=== PATIENT | male | born 1955 | race African-American/Black ===

== ENCOUNTER 2017-07-21 09:59 | Emergency (ER) | payer MEDICAID ==
[~2017-07-21] VITALS: Ht 177.8 cm; Wt 82.0 kg
[~2017-07-21 09:59] MED LIST: ALBU05 IH; AMLO2.5T45 PO; ATEN-42 PO; ATOR20TA65 PO; LORA10TA7 PO; MECL-109 PO; NAPR-679 PO; OMEP40CA34 PO; SIMV20TA6 PO; SUCR1ORA PO; TRAM50TA3 PO
[2017-07-21] MEDS ORDERED: INDOMETHACIN 50MG CAPSULE PO ONE (11:30)
[2017-07-21] MEDS ORDERED: COLCHICINE 0.6MG TABLET PO ONE (11:30)
[2017-07-21] MEDS ORDERED: PREDNISONE 20MG TABLET PO ONE (11:30)
[2017-07-21] MEDS ORDERED: IPRATROPIUM BROMIDE (0.02%) 0.5MG/2.5ML NEB HHN STA (11:33)
[2017-07-21] MEDS ORDERED: ALBUTEROL (0.083%) 2.5MG/3ML NEB HHN STA (11:33)
[2017-07-21] MEDS ORDERED: IPRATROPIUM/ALBUTEROL 0.5-3(2.5)MG/3ML NEB ONE (12:01)
[2017-07-21 12:55] VITALS: BP 10/98
== END 2017-07-21 13:00 | disposition home or self-care (01) ==
LOC: ER 10:50
DX: M10.072 Idiopathic gout, left ankle and foot (principal); J45.901 Unspecified asthma with (acute) exacerbation; I10 Essential (primary) hypertension; J44.9 Chronic obstructive pulmonary disease, unspecified; Z86.73 Personal history of transient ischemic attack (TIA), and cerebral infarction without residual deficits; Z88.0 Allergy status to penicillin
CPT/HCPCS: 71010; 94640; 99284; J7512; J7611; J7620

== ENCOUNTER 2018-12-09 16:48 | Inpatient (IN) | payer MEDICAID ==
[~2018-12-09] VITALS: Ht 172.7 cm; Wt 61.0 kg
[~2018-12-09 16:48] MED LIST changes: -ALBU05 IH; -ATOR20TA65 PO; -SIMV20TA6 PO
[2018-12-09 20:39] LABS: BASOPHILS % 2.3 % (0.0-2.0); EOSINOPHILS % 5.5 % (0.0-5.0); HEMATOCRIT. 41.4 % (42.0-52.0); HEMOGLOBIN. 13.7 g/dL (14.0-18.0); LYMPHOCYTES % 46.2 % (20.0-50.0); MEAN CORPUSCULAR HEMOGLOBIN 31.3 pg (28.0-32.0); MEAN CORPUSCULAR VOLUME 94.7 fL (80.0-94.0); MEAN PLATELET VOLUME 7.4 fl (7.4-10.4); MONOCYTES % 6.4 % (2.0-8.0); NEUTROPHILS % 39.6 % (40.0-76.0); PLATELET 267 x1000/uL (130-400); RED BLOOD CELL COUNT 4.37 mill/uL (4.7-6.1); RED CELL DISTRIBUTION WIDTH 13.2 % (11.6-14.6)
[2018-12-09 20:45] LABS: CHLORIDE 109 mEq/L (98-107); PROTHROMBIN TIME 10.4 sec (9.1-11.1)
[2018-12-09 20:49] LABS: ETHANOL BLOOD 131 mg/dL
[2018-12-09 20:52] LABS: *AMPHETAMINES SCREEN URINE NEGATIVE (NEGATIVE); *BARBITURATES SCREEN URINE NEGATIVE (NEGATIVE); *BENZODIAZEPINES SCREEN URINE NEGATIVE (NEGATIVE); *COCAINE SCREEN URINE NEGATIVE (NEGATIVE); CANNABINOID URINE SCREEN NEGATIVE (NEGATIVE); METHADONE URINE SCREEN NEGATIVE (NEGATIVE); OPIATES URINE SCREEN NEGATIVE (NEGATIVE); PHENCYCLIDINE URINE SCREEN NEGATIVE (NEGATIVE)
[2018-12-09] MEDS ORDERED: ALBUTEROL (0.083%) 2.5MG/3ML NEB HHN STA (22:19)
[2018-12-09] MEDS ORDERED: METHYLPREDNISOLONE SOD SUCC 125 MG/2 ML VIAL IV STA (22:19)
[2018-12-09] MEDS ORDERED: ASPIRIN 325MG TABLET PO ONE (22:30)
[2018-12-10] MEDS: ASPIRIN 325MG TABLET PO NR ×2 (03:46→05:16)
[2018-12-10] MEDS: METHYLPREDNISOLONE SOD SUCC 125 MG/2 ML VIAL IV NR ×2 (03:46→05:16)
[2018-12-10 09:16] VITALS: BP 147/90
[2018-12-10 10:00] VITALS: BP 147/90
[2018-12-10] MEDS ORDERED: MONT10TA21 PO (10:19)
[2018-12-10] MEDS ORDERED: MAGNESIUM/ALUMINUM HYDROXIDE/SIMETHICONE 30ML UDC PO PRN (10:45)
[2018-12-10] MEDS ORDERED: GUAIFENESIN 200MG/10ML SUGAR FREE UDC PO PRN (10:45)
[2018-12-10] MEDS ORDERED: CLONIDINE 0.1MG TABLET PO PRN (10:45)
[2018-12-10] MEDS ORDERED: ONDANSETRON HCL 4MG/2ML INJ IV PRN (10:45)
[2018-12-10] MEDS ORDERED: DOCUSATE SODIUM 100MG CAPSULE PO PRN (10:45)
[2018-12-10] MEDS ORDERED: ACETAMINOPHEN 325MG TABLET PO PRN (10:45)
[2018-12-10 12:00] VITALS: BP 116/72
[2018-12-10 12:04] LABS: PHOSPHORUS 2.8 mg/dL (2.5-4.9)
[2018-12-10 12:29] LABS: VITAMIN B12 SERUM 187 pg/mL (211-911)
[2018-12-10 12:35] LABS: FOLIC ACID (FOLATE) SERUM > 20.00 ng/mL (>5.38)
[2018-12-10] MEDS: HYDROCODONE/ACETAMINOPHEN 5/325MG TABLET PO PRN (13:00)
[2018-12-10] MEDS: ENOXAPARIN 40MG/0.4ML SYR SUBCUT SCH (13:00)
[2018-12-10 17:00] VITALS: BP 116/79
[2018-12-10] MEDS: CYANOCOBALAMIN 1000MCG/ML VIAL IM SCH (18:01)
[2018-12-10] MEDS: FOLIC ACID 1MG TABLET PO SCH (18:01)
[2018-12-10] MEDS: THIAMINE HCL 100MG TABLET PO SCH (18:01)
[2018-12-10] MEDS: MULTIVITAMINS,THER W-MINERALS TABLET PO SCH (18:01)
[2018-12-10 20:00] VITALS: BP 129/90
[2018-12-10] MEDS: IPRATROPIUM/ALBUTEROL 0.5-3(2.5)MG/3ML NEB INH PRN (20:52)
[2018-12-11] VITALS: BP 118/81
[2018-12-11 04:00] VITALS: BP 108/77
[2018-12-11 06:56] LABS: BASOPHILS % 0.7 % (0.0-2.0); EOSINOPHILS % 0.7 % (0.0-5.0); HEMATOCRIT. 39.1 % (42.0-52.0); HEMOGLOBIN. 13.1 g/dL (14.0-18.0); LYMPHOCYTES % 23.4 % (20.0-50.0); MEAN CORPUSCULAR HEMOGLOBIN 31.4 pg (28.0-32.0); MEAN CORPUSCULAR VOLUME 94.2 fL (80.0-94.0); MEAN PLATELET VOLUME 7.7 fl (7.4-10.4); MONOCYTES % 8.6 % (2.0-8.0); NEUTROPHILS % 66.6 % (40.0-76.0); PLATELET 264 x1000/uL (130-400); RED BLOOD CELL COUNT 4.15 mill/uL (4.7-6.1); RED CELL DISTRIBUTION WIDTH 13.4 % (11.6-14.6)
[2018-12-11 07:58] LABS: CHLORIDE 110 mEq/L (98-107)
[2018-12-11 08:00] VITALS: BP 116/77
[2018-12-11 08:05] LABS: LDL CHOLESTEROL 107 mg/dL (5-100)
[2018-12-11 08:06] LABS: HDL CHOLESTEROL 68 mg/dL (40-59)
[2018-12-11] MEDS: ENOXAPARIN 40MG/0.4ML SYR SUBCUT SCH (09:36)
[2018-12-11] MEDS: FOLIC ACID 1MG TABLET PO SCH (09:37)
[2018-12-11] MEDS: THIAMINE HCL 100MG TABLET PO SCH (09:37)
[2018-12-11] MEDS: CLOPIDOGREL 75MG TABLET PO SCH (09:37)
[2018-12-11] MEDS: CYANOCOBALAMIN 1000MCG/ML VIAL IM SCH (09:37)
[2018-12-11] MEDS: MULTIVITAMINS,THER W-MINERALS TABLET PO SCH (09:37)
[2018-12-11] MEDS: IPRATROPIUM/ALBUTEROL 0.5-3(2.5)MG/3ML NEB INH PRN (10:01)
[2018-12-11] MEDS: HYDROCODONE/ACETAMINOPHEN 5/325MG TABLET PO PRN ×2 (10:27→22:27)
[2018-12-11 12:00] VITALS: BP 132/87
[2018-12-11 16:00] VITALS: BP 99/70
[2018-12-11 20:00] VITALS: BP 111/74
[2018-12-11] MEDS ORDERED: ATORVASTATIN CALCIUM 10MG TABLET PO SCH (21:00)
[2018-12-12] VITALS: BP 120/74
[2018-12-12 04:00] VITALS: BP 112/74
[2018-12-12 07:12] LABS: CHLORIDE 111 mEq/L (98-107)
[2018-12-12 07:19] LABS: BASOPHILS % 1.5 % (0.0-2.0); EOSINOPHILS % 3.7 % (0.0-5.0); HEMATOCRIT. 38.3 % (42.0-52.0); HEMOGLOBIN. 12.8 g/dL (14.0-18.0); LYMPHOCYTES % 37.6 % (20.0-50.0); MEAN CORPUSCULAR HEMOGLOBIN 31.7 pg (28.0-32.0); MEAN PLATELET VOLUME 7.7 fl (7.4-10.4); MONOCYTES % 9.4 % (2.0-8.0); NEUTROPHILS % 47.8 % (40.0-76.0); PLATELET 256 x1000/uL (130-400); RED BLOOD CELL COUNT 4.03 mill/uL (4.7-6.1); RED CELL DISTRIBUTION WIDTH 13.3 % (11.6-14.6)
[2018-12-12] MEDS: MULTIVITAMINS,THER W-MINERALS TABLET PO SCH (08:29)
[2018-12-12] MEDS: FOLIC ACID 1MG TABLET PO SCH (08:29)
[2018-12-12] MEDS: CYANOCOBALAMIN 1000MCG/ML VIAL IM SCH (08:31)
[2018-12-12] MEDS: CLOPIDOGREL 75MG TABLET PO SCH (08:31)
[2018-12-12] MEDS: ENOXAPARIN 40MG/0.4ML SYR SUBCUT SCH (08:31)
[2018-12-12] MEDS: THIAMINE HCL 100MG TABLET PO SCH (08:31)
[2018-12-12] MEDS: HYDROCODONE/ACETAMINOPHEN 5/325MG TABLET PO PRN (10:02)
[2018-12-12] MEDS: IPRATROPIUM/ALBUTEROL 0.5-3(2.5)MG/3ML NEB INH PRN ×2 (11:06→16:21)
[2018-12-12 11:09] VITALS: BP 112/79
[2018-12-12 12:00] VITALS: BP 118/75
[2018-12-12] MEDS ORDERED: ATOR10TA MT (12:54)
[2018-12-12 16:00] VITALS: BP 110/74
[2018-12-12 16:30] VITALS: BP 110/74
== END 2018-12-12 17:15 | disposition home or self-care (01) | DRG 140 ==
LOC: ER 18:13 → 5WST 22:41 → EDBEDREQ 22:42 → EDBEDREQTM 22:42 → ENRESERV 12-10 08:12
PROVIDERS: ADMIT Internal Medicine; ATTEND Internal Medicine
DX: J44.1 Chronic obstructive pulmonary disease with (acute) exacerbation (principal); E87.8 Other disorders of electrolyte and fluid balance, not elsewhere classified; M48.02 Spinal stenosis, cervical region; D64.9 Anemia, unspecified; E53.8 Deficiency of other specified B group vitamins; R20.2 Paresthesia of skin; G83.21 Monoplegia of upper limb affecting right dominant side; F10.20 Alcohol dependence, uncomplicated; I10 Essential (primary) hypertension; Y90.6 Blood alcohol level of 120-199 mg/100 ml; F17.200 Nicotine dependence, unspecified, uncomplicated; Z86.711 Personal history of pulmonary embolism; Z86.73 Personal history of transient ischemic attack (TIA), and cerebral infarction without residual deficits; Z88.0 Allergy status to penicillin
CPT/HCPCS: 36415; 70544; 70551; 71045; 72141; 80048; 80061; 80305; 80320; 82607; 82746; 83735; 84100; 84443; 84484; 93005; 93306; 93880; 93970; 96374; 97162; 99285; J1650; J2930; J3420; J7611; J7620; G0480

== ENCOUNTER 2019-11-10 16:36 | Inpatient (IN) | payer MEDICARE, MEDICAID ==
[~2019-11-10] VITALS: Ht 175.3 cm; Wt 56.7 kg
[~2019-11-10 16:36] MED LIST changes: -AMLO2.5T45 PO; +ASPI-1497 MT; -ATEN-42 PO; +ATOR10TA MT; +HYDR-4001 MT; -MECL-109 PO; +MECL-159 PO; +METF-815 MT; +METO-385 MT; +MONT10TA21 PO; -NAPR-679 PO; +OMEP20CA14 PO; -OMEP40CA34 PO; -SUCR1ORA PO; +TICA90TA MT; -TRAM50TA3 PO
[2019-11-10] MEDS ORDERED: IPRATROPIUM/ALBUTEROL 0.5-3(2.5)MG/3ML NEB HHN ONE ×2 (18:00→22:30)
[2019-11-10 19:09] LABS: BASOPHILS % 1.8 % (0.0-2.0); EOSINOPHILS % 3.5 % (0.0-5.0); HEMATOCRIT. 35.9 % (42.0-52.0); LYMPHOCYTES % 29.8 % (20.0-50.0); MEAN CORPUSCULAR HEMOGLOBIN 30.4 pg (28.0-32.0); MEAN CORPUSCULAR VOLUME 91.1 fL (80.0-94.0); MEAN PLATELET VOLUME 7.1 fl (7.4-10.4); MONOCYTES % 7.2 % (2.0-8.0); NEUTROPHILS % 57.7 % (40.0-76.0); PLATELET 252 x1000/uL (130-400); RED BLOOD CELL COUNT 3.94 mill/uL (4.7-6.1); RED CELL DISTRIBUTION WIDTH 14.1 % (11.6-14.6)
[2019-11-10 19:14] LABS: CHLORIDE 110 mEq/L (98-107)
[2019-11-10 20:38] LABS: CLARITY URINE CLEAR (CLEAR); COLOR URINE YELLOW (YELLOW); KETONES URINE NEGATIVE (NEGATIVE); LEUKOCYTE ESTERASE URINE NEGATIVE (NEGATIVE); NITRITE URINE NEGATIVE (NEGATIVE); OCCULT BLOOD URINE NEGATIVE (NEGATIVE); PROTEIN URINE NEGATIVE (NEGATIVE); SPECIFIC GRAVITY URINE 1.002 (1.005-1.030); UROBILINOGEN URINE 0.2 E.U./dL (0.2-1.0)
[2019-11-10 20:51] LABS: *AMPHETAMINES SCREEN URINE NEGATIVE (NEGATIVE); *BARBITURATES SCREEN URINE NEGATIVE (NEGATIVE); *BENZODIAZEPINES SCREEN URINE NEGATIVE (NEGATIVE); *COCAINE SCREEN URINE NEGATIVE (NEGATIVE); CANNABINOID URINE SCREEN NEGATIVE (NEGATIVE); METHADONE URINE SCREEN NEGATIVE (NEGATIVE); OPIATES URINE SCREEN NEGATIVE (NEGATIVE)
[2019-11-10 20:53] LABS: PHENCYCLIDINE URINE SCREEN NEGATIVE (NEGATIVE)
[2019-11-11] MEDS: IPRATROPIUM/ALBUTEROL 0.5-3(2.5)MG/3ML NEB HHN SCH ×4 (06:00→21:00)
[2019-11-11] MEDS ORDERED: BENZONATATE 100MG CAPSULE PO PRN (11:45)
[2019-11-11] MEDS ORDERED: ONDANSETRON HCL 4MG/2ML INJ IV PRN (11:45)
[2019-11-11] MEDS ORDERED: ACETAMINOPHEN 325MG TABLET PO PRN (11:45)
[2019-11-11] MEDS ORDERED: IPRATROPIUM/ALBUTEROL 0.5-3(2.5)MG/3ML NEB HHN SCH (12:00)
[2019-11-11 16:00] VITALS: BP 139/86
[2019-11-11] MEDS ORDERED: HYDROCODONE/ACETAMINOPHEN 5/325MG TABLET PO PRN (18:00)
[2019-11-11 20:00] VITALS: BP 127/75
[2019-11-11] MEDS: BUDESONIDE 0.5MG/2ML NEB HHN SCH (20:59)
[2019-11-12] VITALS: BP 115/72
[2019-11-12] MEDS: IPRATROPIUM/ALBUTEROL 0.5-3(2.5)MG/3ML NEB HHN SCH ×5 (01:47→16:13)
[2019-11-12 04:00] VITALS: BP 101/75
[2019-11-12 07:46] LABS: BASOPHILS % 1.5 % (0.0-2.0); EOSINOPHILS % 6.1 % (0.0-5.0); HEMATOCRIT. 34.2 % (42.0-52.0); HEMOGLOBIN. 11.3 g/dL (14.0-18.0); LYMPHOCYTES % 32.1 % (20.0-50.0); MEAN CORPUSCULAR HEMOGLOBIN 30.3 pg (28.0-32.0); MEAN CORPUSCULAR VOLUME 91.8 fL (80.0-94.0); MEAN PLATELET VOLUME 7.7 fl (7.4-10.4); MONOCYTES % 10.2 % (2.0-8.0); NEUTROPHILS % 50.1 % (40.0-76.0); PLATELET 251 x1000/uL (130-400); RED BLOOD CELL COUNT 3.72 mill/uL (4.7-6.1); RED CELL DISTRIBUTION WIDTH 14.3 % (11.6-14.6)
[2019-11-12 08:00] VITALS: BP 118/70
[2019-11-12 08:09] LABS: CHLORIDE 109 mEq/L (98-107)
[2019-11-12] MEDS: BUDESONIDE 0.5MG/2ML NEB HHN SCH (08:26)
[2019-11-12] MEDS ORDERED: ASPIRIN 81MG TABLET PO SCH (09:00)
[2019-11-12 12:00] VITALS: BP 115/70
[2019-11-12] MEDS ORDERED: FLUT1DIS3 INH (13:19)
[2019-11-12] MEDS ORDERED: ALBU18HF2 IH (13:19)
[2019-11-12] MEDS ORDERED: IPRA3AMP9 NEB (13:19)
== END 2019-11-12 17:29 | disposition home or self-care (01) | DRG 189 ==
LOC: ER 16:36 → 7WST 22:30 → EDBEDREQ 22:33 → EDBEDREQTM 22:33 → ENRESERV 11-11 14:29
PROVIDERS: ADMIT Internal Medicine; ATTEND Internal Medicine
DX: J96.00 Acute respiratory failure, unspecified whether with hypoxia or hypercapnia (principal); J44.1 Chronic obstructive pulmonary disease with (acute) exacerbation; E87.2 Acidosis; I42.9 Cardiomyopathy, unspecified; I50.32 Chronic diastolic (congestive) heart failure; D64.9 Anemia, unspecified; E78.5 Hyperlipidemia, unspecified; E87.8 Other disorders of electrolyte and fluid balance, not elsewhere classified; I11.0 Hypertensive heart disease with heart failure; I25.10 Atherosclerotic heart disease of native coronary artery without angina pectoris; Z86.73 Personal history of transient ischemic attack (TIA), and cerebral infarction without residual deficits; Z87.891 Personal history of nicotine dependence; Z87.440 Personal history of urinary (tract) infections; K21.9 Gastro-esophageal reflux disease without esophagitis; Z88.0 Allergy status to penicillin; Z79.899 Other long term (current) drug therapy; Z79.82 Long term (current) use of aspirin; I25.2 Old myocardial infarction
CPT/HCPCS: 36415; 71045; 80048; 80053; 80305; 81003; 83605; 83735; 83880; 84484; 85025; 93005; 93306; 94640; 99285; J7626

== ENCOUNTER 2020-04-10 19:09 | Emergency (ER) | payer MEDICARE, MEDICAID ==
[~2020-04-10] VITALS: Ht 170.2 cm; Wt 82.0 kg
[~2020-04-10 19:09] MED LIST changes: +ALBU18HF2 IH; +FLUT1DIS3 INH; +IPRA3AMP9 NEB
[2020-04-10 19:18] VITALS: BP 108/66
[2020-04-10] MEDS ORDERED: IBUPROFEN 600MG TABLET PO ONE (19:45)
== END 2020-04-10 20:47 | disposition left against medical advice (07) ==
LOC: ER 19:09
DX: S90.31XA Contusion of right foot, initial encounter (principal); X58.XXXA Exposure to other specified factors, initial encounter; Y93.89 Activity, other specified; Y92.89 Other specified places as the place of occurrence of the external cause; Y99.8 Other external cause status; J44.9 Chronic obstructive pulmonary disease, unspecified; K21.9 Gastro-esophageal reflux disease without esophagitis; I10 Essential (primary) hypertension; I25.2 Old myocardial infarction; Z86.73 Personal history of transient ischemic attack (TIA), and cerebral infarction without residual deficits; Z87.440 Personal history of urinary (tract) infections; Z87.09 Personal history of other diseases of the respiratory system; Z88.0 Allergy status to penicillin; Z79.899 Other long term (current) drug therapy
CPT/HCPCS: 99283

== ENCOUNTER 2020-04-17 15:01 | Inpatient (IN) | payer MEDICARE, MEDICAID ==
[~2020-04-17] VITALS: Ht 175.3 cm; Wt 57.2 kg
[2020-04-17] MEDS ORDERED: METHYLPREDNISOLONE SOD SUCC 125 MG/2 ML VIAL IV STA (15:19)
[2020-04-17] MEDS ORDERED: ALBUTEROL (0.083%) 2.5MG/3ML NEB HHN STA (15:19)
[2020-04-17] MEDS: IPRATROPIUM BROMIDE (0.02%) 0.5MG/2.5ML NEB HHN STA ×2 (15:52→15:55)
[2020-04-17 15:56] LABS: BASOPHILS % 1.3 % (0.0-2.0); EOSINOPHILS % 5.8 % (0.0-5.0); HEMATOCRIT. 37.5 % (42.0-52.0); HEMOGLOBIN. 12.4 g/dL (14.0-18.0); LYMPHOCYTES % 30.5 % (20.0-50.0); MEAN CORPUSCULAR VOLUME 90.9 fL (80.0-94.0); MEAN PLATELET VOLUME 7.4 fl (7.4-10.4); NEUTROPHILS % 54.4 % (40.0-76.0); PLATELET 306 x1000/uL (130-400); RED BLOOD CELL COUNT 4.13 mill/uL (4.7-6.1); RED CELL DISTRIBUTION WIDTH 15.3 % (11.6-14.6)
[2020-04-17 16:01] LABS: CHLORIDE 107 mEq/L (98-107)
[2020-04-17] MEDS ORDERED: ENOXAPARIN 80MG/0.8ML SYR SUBCUT ONE (16:30)
[2020-04-17] MEDS ORDERED: ASPIRIN 325MG EC TABLET PO ONE (16:30)
[2020-04-17] MEDS ORDERED: CLONIDINE 0.1MG TABLET PO PRN (19:15)
[2020-04-17] MEDS ORDERED: DIPHENHYDRAMINE 50MG/ML VIAL IV PRN (19:15)
[2020-04-17] MEDS ORDERED: ENOXAPARIN 40MG/0.4ML SYR SUBCUT SCH (19:15)
[2020-04-17] MEDS ORDERED: ONDANSETRON HCL 4MG/2ML INJ IV PRN (19:15)
[2020-04-17] MEDS ORDERED: ACETAMINOPHEN 325MG TABLET PO PRN (19:15)
[2020-04-17 19:24] LABS: PHOSPHORUS 3.1 mg/dL (2.5-4.9)
[2020-04-17] MEDS: METHYLPREDNISOLONE SOD SUCC 125 MG/2 ML VIAL IV SCH (20:26)
[2020-04-17] MEDS: IPRATROPIUM/ALBUTEROL 0.5-3(2.5)MG/3ML NEB HHN PRN (21:17)
[2020-04-18 00:45] VITALS: BP 156/96
[2020-04-18] MEDS: METHYLPREDNISOLONE SOD SUCC 125 MG/2 ML VIAL IV SCH ×4 (01:52→20:00)
[2020-04-18 04:00] VITALS: BP 142/88
[2020-04-18 06:24] LABS: BASOPHILS % 0.6 % (0.0-2.0); EOSINOPHILS % 0.3 % (0.0-5.0); HEMATOCRIT. 37.8 % (42.0-52.0); HEMOGLOBIN. 12.4 g/dL (14.0-18.0); MEAN CORPUSCULAR HEMOGLOBIN 29.9 pg (28.0-32.0); MEAN CORPUSCULAR VOLUME 90.8 fL (80.0-94.0); MEAN PLATELET VOLUME 7.7 fl (7.4-10.4); MONOCYTES % 2.8 % (2.0-8.0); NEUTROPHILS % 82.3 % (40.0-76.0); PLATELET 318 x1000/uL (130-400); RED BLOOD CELL COUNT 4.16 mill/uL (4.7-6.1); RED CELL DISTRIBUTION WIDTH 15.2 % (11.6-14.6)
[2020-04-18 06:30] LABS: CHLORIDE 107 mEq/L (98-107)
[2020-04-18 06:37] LABS: LDL CHOLESTEROL 104 mg/dL (5-100)
[2020-04-18 06:38] LABS: HDL CHOLESTEROL 82 mg/dL (40-59)
[2020-04-18 08:00] VITALS: BP 134/94
[2020-04-18] MEDS: ENOXAPARIN 40MG/0.4ML SYR SUBCUT SCH (09:09)
[2020-04-18 12:00] VITALS: BP 120/72
[2020-04-18] MEDS: CLOPIDOGREL 75MG TABLET PO SCH (12:25)
[2020-04-18] MEDS: LISINOPRIL 5MG TABLET PO SCH (12:25)
[2020-04-18] MEDS: DILTIAZEM HCL 30MG TABLET PO SCH ×3 (12:25→23:57)
[2020-04-18 16:00] VITALS: BP 106/64
[2020-04-18 20:00] VITALS: BP 105/67
[2020-04-18] MEDS ORDERED: ATORVASTATIN CALCIUM 20MG TABLET PO SCH (21:00)
[2020-04-18] MEDS: IPRATROPIUM/ALBUTEROL 0.5-3(2.5)MG/3ML NEB HHN PRN (21:26)
[2020-04-19] VITALS: BP 126/63
[2020-04-19] MEDS: METHYLPREDNISOLONE SOD SUCC 125 MG/2 ML VIAL IV SCH ×3 (01:21→13:49)
[2020-04-19 04:00] VITALS: BP 124/75
[2020-04-19] MEDS: DILTIAZEM HCL 30MG TABLET PO SCH (05:28)
[2020-04-19 08:00] VITALS: BP 127/73
[2020-04-19] MEDS: CLOPIDOGREL 75MG TABLET PO SCH (09:19)
[2020-04-19] MEDS: ENOXAPARIN 40MG/0.4ML SYR SUBCUT SCH (09:19)
[2020-04-19] MEDS: LISINOPRIL 5MG TABLET PO SCH (09:19)
[2020-04-19] MEDS: IPRATROPIUM/ALBUTEROL 0.5-3(2.5)MG/3ML NEB HHN PRN ×2 (09:21→17:03)
[2020-04-19] MEDS ORDERED: DILTIAZEM HCL 180MG CAPSULE CD 24HR PO SCH (11:15)
[2020-04-19] MEDS ORDERED: ATOR20TA PO (14:36)
[2020-04-19] MEDS ORDERED: LISI-186 PO (14:38)
[2020-04-19] MEDS ORDERED: FLUT1AER INH (14:38)
[2020-04-19] MEDS ORDERED: DILT180C66 PO (14:38)
[2020-04-19] MEDS ORDERED: MED4 MT (14:38)
[2020-04-19 16:00] VITALS: BP 114/68
== END 2020-04-19 17:30 | disposition home or self-care (01) | DRG 280 ==
LOC: ER 15:01 → MICUSO 17:05 → EDBEDREQTM 17:12 → EDBEDREQ 17:12 → 8WST 23:21
PROVIDERS: ADMIT Internal Medicine; ATTEND Internal Medicine
DX: I21.4 Non-ST elevation (NSTEMI) myocardial infarction (principal); J96.00 Acute respiratory failure, unspecified whether with hypoxia or hypercapnia; J44.1 Chronic obstructive pulmonary disease with (acute) exacerbation; I24.9 Acute ischemic heart disease, unspecified; I10 Essential (primary) hypertension; K21.9 Gastro-esophageal reflux disease without esophagitis; F17.210 Nicotine dependence, cigarettes, uncomplicated; E78.5 Hyperlipidemia, unspecified; D64.9 Anemia, unspecified; I25.118 Atherosclerotic heart disease of native coronary artery with other forms of angina pectoris; Z88.0 Allergy status to penicillin; Z79.82 Long term (current) use of aspirin; Z79.899 Other long term (current) drug therapy; Z79.84 Long term (current) use of oral hypoglycemic drugs; Z86.73 Personal history of transient ischemic attack (TIA), and cerebral infarction without residual deficits; Z95.5 Presence of coronary angioplasty implant and graft
CPT/HCPCS: 36415; 71045; 80053; 80061; 83735; 83880; 84100; 84443; 84484; 85025; 93005; 93306; 93970; 94640; 96374; 99291; J1650; J2930

== ENCOUNTER 2020-07-10 17:43 | Emergency (ER) | payer MEDICARE, MEDICAID ==
[~2020-07-10] VITALS: Ht 175.3 cm; Wt 63.0 kg
[~2020-07-10 17:43] MED LIST changes: -ATOR10TA MT; +ATOR20TA PO; +DILT180C66 PO; +FLUT1AER INH; -FLUT1DIS3 INH; -HYDR-4001 MT; +LISI-186 PO; -LORA10TA7 PO; -MECL-159 PO; +MED4 MT
[2020-07-10 20:34] VITALS: BP 143/92
== END 2020-07-10 20:55 | disposition home or self-care (01) ==
LOC: ER 17:43
DX: M67.441 Ganglion, right hand (principal); J45.909 Unspecified asthma, uncomplicated; K21.9 Gastro-esophageal reflux disease without esophagitis; I10 Essential (primary) hypertension; I25.2 Old myocardial infarction; Z86.73 Personal history of transient ischemic attack (TIA), and cerebral infarction without residual deficits; Z87.440 Personal history of urinary (tract) infections; Z87.09 Personal history of other diseases of the respiratory system; Z79.899 Other long term (current) drug therapy
CPT/HCPCS: 73130; 99283

== ENCOUNTER 2022-01-20 16:18 | Inpatient (IN) | payer OTHER, MEDICAID ==
[~2022-01-20] VITALS: Ht 175.3 cm; Wt 61.4 kg
[~2022-01-20 16:18] MED LIST changes: -METF-815 MT; +METF-873 MT
[2022-01-20] MEDS ORDERED: IPRATROPIUM BROMIDE (0.02%) 0.5MG/2.5ML NEB HHN STA (16:33)
[2022-01-20] MEDS ORDERED: METHYLPREDNISOLONE SOD SUCC 125 MG/2 ML VIAL IV STA (16:33)
[2022-01-20 16:53] LABS: BASOPHILS % 0.8 % (0.0-2.0); EOSINOPHILS % 2.5 % (0.0-5.0); HEMATOCRIT. 37.6 % (42.0-52.0); HEMOGLOBIN. 12.4 g/dL (14.0-18.0); LYMPHOCYTES % 28.9 % (20.0-50.0); MEAN CORPUSCULAR HEMOGLOBIN 29.5 pg (28.0-32.0); MEAN CORPUSCULAR VOLUME 89.6 fL (80.0-94.0); MEAN PLATELET VOLUME 7.4 fl (7.4-10.4); MONOCYTES % 11.5 % (2.0-8.0); NEUTROPHILS % 56.3 % (40.0-76.0); PLATELET 237 x1000/uL (130-400); RED BLOOD CELL COUNT 4.19 mill/uL (4.7-6.1); RED CELL DISTRIBUTION WIDTH 14.6 % (11.6-14.6)
[2022-01-20 17:06] LABS: CHLORIDE 106 mEq/L (98-107)
[2022-01-20] MEDS ORDERED: IPRATROPIUM BROMIDE (0.02%) 0.5MG/2.5ML NEB ONE (17:43)
[2022-01-20] MEDS ORDERED: IOHEXOL-350 100 ML BOTTLE ONE (17:48)
[2022-01-20] MEDS: ALBUTEROL (0.083%) 2.5MG/3ML NEB HHN SCH ×3 (17:50→19:55)
[2022-01-20] MEDS ORDERED: SODIUM CHLORIDE 0.9% 1,000 ML IV ONE (18:15)
[2022-01-20 23:00] VITALS: BP 132/73
[2022-01-20] MEDS ORDERED: ALBUTEROL 6.7GM HFA INHALER ORI PRN (23:30)
[2022-01-20] MEDS ORDERED: DEXTROSE 50% WATER 50ML SYRINGE IV PRN (23:45)
[2022-01-20] MEDS ORDERED: PREDNISONE 20MG TABLET PO NR (23:45)
[2022-01-20] MEDS ORDERED: ALBUTEROL (0.083%) 2.5MG/3ML NEB HHN PRN (23:45)
[2022-01-21] VITALS: BP 126/74
[2022-01-21] MEDS: ACETAMINOPHEN 325MG TABLET PO PRN (00:32)
[2022-01-21 04:00] VITALS: BP 116/77
[2022-01-21 06:01] LABS: BASOPHILS % 0.1 % (0.0-2.0); EOSINOPHILS % 0.1 % (0.0-5.0); HEMATOCRIT. 32.8 % (42.0-52.0); LYMPHOCYTES % 11.9 % (20.0-50.0); MEAN CORPUSCULAR HEMOGLOBIN 29.7 pg (28.0-32.0); MEAN CORPUSCULAR VOLUME 88.5 fL (80.0-94.0); MEAN PLATELET VOLUME 7.7 fl (7.4-10.4); MONOCYTES % 2.3 % (2.0-8.0); NEUTROPHILS % 85.6 % (40.0-76.0); PLATELET 220 x1000/uL (130-400); RED BLOOD CELL COUNT 3.71 mill/uL (4.7-6.1); RED CELL DISTRIBUTION WIDTH 14.8 % (11.6-14.6)
[2022-01-21 06:30] LABS: CHLORIDE 111 mEq/L (98-107)
[2022-01-21 06:45] LABS: HDL CHOLESTEROL 68 mg/dL (40-59); LDL CHOLESTEROL 71 mg/dL (5-100)
[2022-01-21] MEDS: BLOOD SUGAR DIAGNOSTIC STRIP TEST SCH ×4 (06:47→21:18)
[2022-01-21 08:00] VITALS: BP 120/67
[2022-01-21] MEDS: METFORMIN HCL 500MG TABLET PO SCH ×2 (08:26→18:09)
[2022-01-21] MEDS: INSULIN LISPRO 100 UNITS/ML SUBCUT SCH ×4 (08:28→21:00)
[2022-01-21] MEDS: BUDESONIDE 0.5MG/2ML NEB HHN SCH ×2 (08:50→10:05)
[2022-01-21] MEDS ORDERED: [UNRECOGNIZED DRUG - OTHER] INH SCH (09:00)
[2022-01-21] MEDS ORDERED: PREDNISONE 20MG TABLET PO NR (09:00)
[2022-01-21] MEDS ORDERED: MEDICATION NOT ON FORMULARY EA (Metformin HCl (Metformin HCl ER) 1 TAB) MT SCH (09:00)
[2022-01-21] MEDS: ASPIRIN 81MG EC TABLET PO SCH (09:49)
[2022-01-21] MEDS: OMEPRAZOLE 20MG CAPSULE EXTENDED RELEASE PO SCH ×2 (09:52→18:10)
[2022-01-21] MEDS: MONTELUKAST SODIUM 10MG TABLET PO SCH (09:54)
[2022-01-21] MEDS: DILTIAZEM HCL 180MG CAPSULE CD 24HR PO SCH (09:54)
[2022-01-21] MEDS: METOPROLOL SUCCINATE 50MG ER TABLET PO SCH (09:55)
[2022-01-21] MEDS: LISINOPRIL 5MG TABLET PO SCH (09:56)
[2022-01-21] MEDS: TICAGRELOR 90 MG TABLET PO SCH ×2 (09:56→18:10)
[2022-01-21] MEDS: ENOXAPARIN 40MG/0.4ML SYR SUBCUT SCH (09:59)
[2022-01-21 12:00] VITALS: BP 124/80
[2022-01-21 14:00] VITALS: BP 112/67
[2022-01-21 20:00] VITALS: BP 105/65
[2022-01-21] MEDS: IPRATROPIUM/ALBUTEROL 0.5-3(2.5)MG/3ML NEB NEB SCH (20:43)
[2022-01-21] MEDS ORDERED: ATORVASTATIN CALCIUM 20MG TABLET PO SCH (21:00)
[2022-01-22] VITALS: BP 111/70
[2022-01-22 04:00] VITALS: BP 101/66
[2022-01-22] MEDS: BLOOD SUGAR DIAGNOSTIC STRIP TEST SCH (06:38)
[2022-01-22 08:00] VITALS: BP 118/64
[2022-01-22] MEDS: INSULIN LISPRO 100 UNITS/ML SUBCUT SCH (08:10)
[2022-01-22] MEDS: METFORMIN HCL 500MG TABLET PO SCH ×2 (08:10→10:40)
[2022-01-22] MEDS: ENOXAPARIN 40MG/0.4ML SYR SUBCUT SCH (09:00)
[2022-01-22] MEDS ORDERED: PREDNISONE 20MG TABLET PO NR (09:00)
[2022-01-22] MEDS: IPRATROPIUM/ALBUTEROL 0.5-3(2.5)MG/3ML NEB NEB SCH (10:05)
[2022-01-22] MEDS: ASPIRIN 81MG EC TABLET PO SCH (10:40)
[2022-01-22] MEDS: MONTELUKAST SODIUM 10MG TABLET PO SCH (10:40)
[2022-01-22] MEDS: METOPROLOL SUCCINATE 50MG ER TABLET PO SCH (10:41)
[2022-01-22] MEDS: LISINOPRIL 5MG TABLET PO SCH (10:41)
[2022-01-22] MEDS: TICAGRELOR 90 MG TABLET PO SCH (10:42)
[2022-01-22] MEDS: DILTIAZEM HCL 180MG CAPSULE CD 24HR PO SCH (10:42)
[2022-01-22] MEDS: OMEPRAZOLE 20MG CAPSULE EXTENDED RELEASE PO SCH (10:45)
[2022-01-22 11:11] VITALS: BP 118/64
[2022-01-22] MEDS: ACETAMINOPHEN 325MG TABLET PO PRN (11:46)
[2022-01-22 12:00] VITALS: BP 110/70
[2022-01-23] MEDS ORDERED: PREDNISONE 20MG TABLET PO NR (09:00)
== END 2022-01-22 12:20 | disposition home or self-care (01) | DRG 202 ==
LOC: ER 16:18 → 7WST 20:31 → ENRESERV 22:19
PROVIDERS: ADMIT Internal Medicine; ATTEND Internal Medicine
DX: J45.901 Unspecified asthma with (acute) exacerbation (principal); E87.2 Acidosis; I10 Essential (primary) hypertension; I25.10 Atherosclerotic heart disease of native coronary artery without angina pectoris; E87.6 Hypokalemia; K21.9 Gastro-esophageal reflux disease without esophagitis; Z86.711 Personal history of pulmonary embolism; Z86.73 Personal history of transient ischemic attack (TIA), and cerebral infarction without residual deficits; Z95.5 Presence of coronary angioplasty implant and graft; Z88.0 Allergy status to penicillin; Z79.82 Long term (current) use of aspirin; Z79.84 Long term (current) use of oral hypoglycemic drugs; Z79.899 Other long term (current) drug therapy; I25.2 Old myocardial infarction; Z87.440 Personal history of urinary (tract) infections
CPT/HCPCS: 36415; 71045; 71275; 80048; 80053; 80061; 82962; 83605; 83880; 84484; 84550; 85025; 93005; 94640; 99285; J1650; J1815; J2930; J7030; J7512; J7626; Q9967; J8499

== ENCOUNTER 2023-05-08 19:07 | Emergency (ER) | payer MEDICARE, MEDICAID ==
[~2023-05-08] VITALS: Ht 180.3 cm; Wt 91.0 kg
[~2023-05-08 19:07] MED LIST changes: +MONT-46 PO; -MONT10TA21 PO
[2023-05-08 19:50] VITALS: TEMP 98.6; O2SAT 98
[2023-05-08 20:15] VITALS: BP 133/91; PULSE 103; RESP 18
[2023-05-08] MEDS ORDERED: HYDROCODONE/ACETAMINOPHEN 5/325MG TABLET PO ONE (20:15)
[2023-05-08] MEDS ORDERED: HYDROCODONE/ACETAMINOPHEN 5/325MG TABLET PO NR (22:15)
== END 2023-05-08 22:18 | disposition home or self-care (01) ==
LOC: ER 19:07
DX: R68.84 Jaw pain (principal); R51.9 Headache, unspecified; J45.909 Unspecified asthma, uncomplicated; E11.9 Type 2 diabetes mellitus without complications; Z79.899 Other long term (current) drug therapy
CPT/HCPCS: 70486; 72040; 99284

== ENCOUNTER 2024-08-21 08:03 | Inpatient (IN) | payer MEDICARE, MEDICAID ==
[2024-08-21] VITALS (8 sets, daily range): BP systolic 169; BP diastolic 97; PULSE 135; RESP 19–36; TEMP 36.5848
[~2024-08-21] VITALS: Ht 172.7 cm; Wt 52.8 kg
[~2024-08-21 08:03] MED LIST changes: -ALBU18HF2 IH; +ALBU18HF2 INH; +ALBU2.5V13 NEB; +APIX5TAB MT; -ATOR20TA PO; +ATOR40TA70 PO; +DILT180C51 PO; -DILT180C66 PO; +FERR-63 PO; -FLUT1AER INH; -IPRA3AMP9 NEB; -LISI-186 PO; -MED4 MT; +METF-414 PO; -METF-873 MT; -METO-385 MT; +METO25TA6 MT; +METO25TA6 PO; -MONT-46 PO; -OMEP20CA14 PO; +SUCR1TAB30 MT; -TICA90TA MT
[2024-08-21] MEDS: METHYLPREDNISOLONE SOD SUCC 125MG/2ML (ACT-O-VIAL) IV STA (08:22)
[2024-08-21] MEDS: MAGNESIUM 2 G PREMIX 50 ML IV ONE (08:25)
[2024-08-21 08:39] LABS: CHLORIDE 109 mEq/L (98-107); POTASSIUM 4.3 mEq/L (3.5-5.1); SODIUM 143 mEq/L (136-145)
[2024-08-21 08:40] LABS: CARBON DIOXIDE 26 mEq/L (21-32)
[2024-08-21 08:41] LABS: CALCIUM 9.8 mg/dL (8.7-10.4)
[2024-08-21] MEDS: ALBUTEROL (0.083%) 2.5MG/3ML NEB HHN STA ×2 (08:43→09:40)
[2024-08-21] MEDS: IPRATROPIUM BROMIDE (0.02%) 0.5MG/2.5ML NEB HHN STA ×2 (08:44→09:24)
[2024-08-21 08:45] LABS: CREATININE 1.2 mg/dL (0.6-1.3); GLUCOSE 150 mg/dL (70-105); UREA NITROGEN BLOOD 16 mg/dL (9-23)
[2024-08-21 08:46] LABS: BASOPHILS % 0.7 % (0.0-2.0); HEMATOCRIT. 44.4 % (42.0-52.0); LYMPHOCYTES % 21.4 % (20.0-50.0); MEAN CORPUSCULAR HEMOGLOBIN 28.9 pg (28.0-32.0); MEAN CORPUSCULAR HGB CONC 31.6 g/dL (31.0-37.0); MEAN CORPUSCULAR VOLUME 91.5 fL (80.0-94.0); MEAN PLATELET VOLUME 8.5 fl (7.4-10.4); MONOCYTES % 8.2 % (2.0-8.0); NEUTROPHILS % 69.7 % (40.0-76.0); PLATELET 271 x1000/uL (130-400); RED BLOOD CELL COUNT 4.85 mill/uL (4.7-6.1); RED CELL DISTRIBUTION WIDTH 15.7 % (11.6-14.6); WHITE BLOOD COUNT 10.3 x1000/uL (4.5-11.0)
[2024-08-21 08:48] LABS: TROPONIN I HIGH SENSITIVITY 53 ng/L (3.0-53)
[2024-08-21] MEDS ORDERED: MAGNESIUM/ALUMINUM HYDROXIDE/SIMETHICONE 30ML UDC PO PRN (10:45)
[2024-08-21] MEDS ORDERED: ENOXAPARIN 40MG/0.4ML SYR SUBCUT SCH (10:45)
[2024-08-21] MEDS ORDERED: ONDANSETRON HCL 4MG/2ML INJ IV PRN (10:45)
[2024-08-21] MEDS ORDERED: CLONIDINE 0.1MG TABLET PO PRN (10:45)
[2024-08-21] MEDS ORDERED: ACETAMINOPHEN 325MG TABLET PO PRN (10:45)
[2024-08-21] MEDS: METHYLPREDNISOLONE SOD SUCC 40MG/ML (ACT-O-VIAL) IV SCH (10:57)
[2024-08-21] MEDS: DILTIAZEM HCL 180MG CAPSULE ER 24HR PO SCH (11:00)
[2024-08-21] MEDS: APIXABAN 5 MG TABLET PO SCH (11:20)
[2024-08-21 11:40] LABS: BG BASE EXCESS -4.1 mmol/L (-2.0-3.0); BG CARBOXYHEMOGLOBIN 0.1 % (0.5-1.5); BG DEOXYHEMOGLOBIN 0.3 % (0.0-5.0); BG FRACTION INSPIRED OXYGEN 100; BG HCO3 ACT 21.4 mmol/L (21.0-28.0); BG METHEMOGLOBIN 0.1 % (0.5-1.5); BG OXYGEN SATURATION 99.7 % (94.0-98.0); BG OXYHEMOGLOBIN 99.5 % (94.0-98.0); BG PCO2 40.7 mmHg (35.0-48.0); BG PH 7.338 (7.350-7.450); BG PO2 474.6 mmHg (83.0-108.0); BG SAMPLE SITE RIGHT BRACHIAL; BG TOTAL HEMOGLOBIN 12.9 g/dL (13.5-17.5); BG VENT MODE MASK - BIPAP
[2024-08-21] MEDS: IPRATROPIUM/ALBUTEROL 0.5-3(2.5)MG/3ML NEB HHN SCH (12:00)
[2024-08-21] MEDS: SUCRALFATE 1G TABLET PO SCH (13:01)
[2024-08-21] MEDS: ATORVASTATIN CALCIUM 40MG TABLET PO SCH (21:37)
[2024-08-21] MEDS: GUAIFENESIN 600MG ER TABLET PO SCH (21:37)
[2024-08-22] VITALS (18 sets, daily range): BP systolic 88–155; BP diastolic 64–106; PULSE 99–123; RESP 17–28; TEMP 36.22512–37.00296; O2SAT 97–100
[2024-08-22 00:58] LABS: *AMPHETAMINES SCREEN URINE NEGATIVE (NEGATIVE); *BARBITURATES SCREEN URINE NEGATIVE (NEGATIVE); *BENZODIAZEPINES SCREEN URINE NEGATIVE (NEGATIVE); *COCAINE SCREEN URINE NEGATIVE (NEGATIVE); METHADONE URINE SCREEN NEGATIVE (NEGATIVE)
[2024-08-22 00:59] LABS: CANNABINOID URINE SCREEN NEGATIVE (NEGATIVE); ECSTASY MDMA SCREEN URINE NEGATIVE (NEGATIVE); OPIATES URINE SCREEN NEGATIVE (NEGATIVE); PHENCYCLIDINE URINE SCREEN NEGATIVE (NEGATIVE)
[2024-08-22 06:04] LABS: BASOPHILS % 0.1 % (0.0-2.0); HEMATOCRIT. 37.9 % (42.0-52.0); HEMOGLOBIN. 12.1 g/dL (14.0-18.0); LYMPHOCYTES % 11.8 % (20.0-50.0); MEAN CORPUSCULAR HEMOGLOBIN 28.6 pg (28.0-32.0); MEAN CORPUSCULAR HGB CONC 31.9 g/dL (31.0-37.0); MEAN CORPUSCULAR VOLUME 89.8 fL (80.0-94.0); MEAN PLATELET VOLUME 8.4 fl (7.4-10.4); MONOCYTES % 6.1 % (2.0-8.0); PLATELET 221 x1000/uL (130-400); RED BLOOD CELL COUNT 4.22 mill/uL (4.7-6.1); RED CELL DISTRIBUTION WIDTH 15.9 % (11.6-14.6); WHITE BLOOD COUNT 10.9 x1000/uL (4.5-11.0)
[2024-08-22 06:06] LABS: CARBON DIOXIDE 26 mEq/L (21-32); CHLORIDE 109 mEq/L (98-107); POTASSIUM 4.2 mEq/L (3.5-5.1); SODIUM 143 mEq/L (136-145)
[2024-08-22 06:07] LABS: CALCIUM 9.8 mg/dL (8.7-10.4)
[2024-08-22 06:11] LABS: CREATININE 0.9 mg/dL (0.6-1.3); GLUCOSE 132 mg/dL (70-105)
[2024-08-22 06:12] LABS: UREA NITROGEN BLOOD 23 mg/dL (9-23)
[2024-08-22] MEDS: PANTOPRAZOLE SODIUM 40 MG/VIAL IV SCH (08:29)
[2024-08-22] MEDS: ASPIRIN 81MG EC TABLET PO SCH (08:29)
[2024-08-22] MEDS: IPRATROPIUM/ALBUTEROL 0.5-3(2.5)MG/3ML NEB HHN PRN (09:01)
[2024-08-22 10:12] LABS: BG BASE EXCESS -0.6 mmol/L (-2.0-3.0); BG CARBOXYHEMOGLOBIN 0.2 % (0.5-1.5); BG DEOXYHEMOGLOBIN 1.2 % (0.0-5.0); BG FRACTION INSPIRED OXYGEN 40; BG METHEMOGLOBIN 0.3 % (0.5-1.5); BG OXYGEN SATURATION 98.8 % (94.0-98.0); BG OXYHEMOGLOBIN 98.3 % (94.0-98.0); BG PCO2 39.4 mmHg (35.0-48.0); BG PH 7.402 (7.350-7.450); BG PO2 130.9 mmHg (83.0-108.0); BG SAMPLE SITE RIGHT BRACHIAL; BG TOTAL HEMOGLOBIN 13.3 g/dL (13.5-17.5); BG VENT MODE MASK - BIPAP
[2024-08-22] MEDS: METHYLPREDNISOLONE SOD SUCC 40MG/ML (ACT-O-VIAL) IV SCH (13:42)
[2024-08-22] MEDS: BUDESONIDE 0.5MG/2ML NEB INH SCH (14:08)
[2024-08-22] MEDS: IPRATROPIUM/ALBUTEROL 0.5-3(2.5)MG/3ML NEB HHN SCH (15:30)
[2024-08-23] VITALS (20 sets, daily range): BP systolic 108–129; BP diastolic 69–96; PULSE 89–114; RESP 16–31; TEMP 35.94732–36.83628; O2SAT 99–100
[2024-08-24] VITALS (15 sets, daily range): BP systolic 94–151; BP diastolic 71–110; PULSE 74–119; RESP 18–29; TEMP 36.00288–36.33624; O2SAT 95–100
[2024-08-24 09:22] LABS: BG BASE EXCESS 3.8 mmol/L (-2.0-3.0); BG CARBOXYHEMOGLOBIN 0.7 % (0.5-1.5); BG DEOXYHEMOGLOBIN 0.4 % (0.0-5.0); BG HCO3 ACT 29.6 mmol/L (21.0-28.0); BG OXYGEN SATURATION 99.6 % (94.0-98.0); BG OXYHEMOGLOBIN 98.9 % (94.0-98.0); BG PCO2 49.6 mmHg (35.0-48.0); BG PH 7.394 (7.350-7.450); BG PO2 176.1 mmHg (83.0-108.0); BG SAMPLE SITE RIGHT RADIAL; BG TOTAL HEMOGLOBIN 13.8 g/dL (13.5-17.5); BG VENT MODE MASK - BIPAP
[2024-08-25] VITALS (18 sets, daily range): BP systolic 107–144; BP diastolic 70–101; PULSE 81–112; RESP 13–29; TEMP 36.114–36.72516; O2SAT 92–100
[2024-08-25 07:58] LABS: BASOPHILS % 0.3 % (0.0-2.0); HEMATOCRIT. 39.4 % (42.0-52.0); HEMOGLOBIN. 12.8 g/dL (14.0-18.0); LYMPHOCYTES % 9.8 % (20.0-50.0); MEAN CORPUSCULAR HEMOGLOBIN 28.9 pg (28.0-32.0); MEAN CORPUSCULAR HGB CONC 32.5 g/dL (31.0-37.0); MEAN PLATELET VOLUME 8.7 fl (7.4-10.4); MONOCYTES % 7.4 % (2.0-8.0); NEUTROPHILS % 82.5 % (40.0-76.0); PLATELET 211 x1000/uL (130-400); RED BLOOD CELL COUNT 4.42 mill/uL (4.7-6.1); RED CELL DISTRIBUTION WIDTH 15.2 % (11.6-14.6); WHITE BLOOD COUNT 7.3 x1000/uL (4.5-11.0)
[2024-08-25 08:04] LABS: CARBON DIOXIDE 32 mEq/L (21-32); CHLORIDE 105 mEq/L (98-107); POTASSIUM 4.3 mEq/L (3.5-5.1); SODIUM 143 mEq/L (136-145)
[2024-08-25 08:05] LABS: CALCIUM 10.5 mg/dL (8.7-10.4)
[2024-08-25 08:10] LABS: CREATININE 0.9 mg/dL (0.6-1.3); GLUCOSE 140 mg/dL (70-105); UREA NITROGEN BLOOD 23 mg/dL (9-23)
[2024-08-25 10:04] LABS: BG BASE EXCESS 5.7 mmol/L (-2.0-3.0); BG CARBOXYHEMOGLOBIN 0.2 % (0.5-1.5); BG DEOXYHEMOGLOBIN 3.6 % (0.0-5.0); BG FRACTION INSPIRED OXYGEN 32; BG HCO3 ACT 29.9 mmol/L (21.0-28.0); BG METHEMOGLOBIN 0.3 % (0.5-1.5); BG OXYGEN SATURATION 96.4 % (94.0-98.0); BG OXYHEMOGLOBIN 95.9 % (94.0-98.0); BG PH 7.471 (7.350-7.450); BG PO2 79.9 mmHg (83.0-108.0); BG SAMPLE SITE RIGHT RADIAL; BG TOTAL HEMOGLOBIN 13.3 g/dL (13.5-17.5); BG VENT MODE NASAL CANNULA
[2024-08-26] VITALS (18 sets, daily range): BP systolic 76–151; BP diastolic 40–90; PULSE 85–109; RESP 15–35; TEMP 35.66952–37.16964; O2SAT 91–100
[2024-08-26] MEDS: FAMOTIDINE 20MG/2ML VIAL IV SCH (09:00)
[2024-08-26] MEDS: IPRATROPIUM/ALBUTEROL 0.5-3(2.5)MG/3ML NEB HHN SCH (21:13)
[2024-08-27] VITALS (18 sets, daily range): BP systolic 114–147; BP diastolic 72–128; PULSE 91–133; RESP 16–27; TEMP 36.28068–37.00296; O2SAT 91–100
[2024-08-27] MEDS: BUDESONIDE 0.5MG/2ML NEB HHN SCH (00:29)
[2024-08-27 13:14] LABS: BG BASE EXCESS 6.6 mmol/L (-2.0-3.0); BG CARBOXYHEMOGLOBIN 0.6 % (0.5-1.5); BG DEOXYHEMOGLOBIN 7.1 % (0.0-5.0); BG FRACTION INSPIRED OXYGEN 21; BG HCO3 ACT 29.7 mmol/L (21.0-28.0); BG METHEMOGLOBIN 0.1 % (0.5-1.5); BG OXYGEN SATURATION 92.8 % (94.0-98.0); BG OXYHEMOGLOBIN 92.2 % (94.0-98.0); BG PCO2 37.5 mmHg (35.0-48.0); BG PH 7.517 (7.350-7.450); BG PO2 60.4 mmHg (83.0-108.0); BG SAMPLE SITE RIGHT BRACHIAL; BG TOTAL HEMOGLOBIN 13.2 g/dL (13.5-17.5); BG VENT MODE ROOM AIR
[2024-08-28] VITALS (15 sets, daily range): BP systolic 109–154; BP diastolic 62–108; PULSE 87–121; RESP 16–24; TEMP 36.33624–36.9474; O2SAT 91–97
[2024-08-28] MEDS ORDERED: IPRA3AMP9 HHN (12:36)
[2024-08-28] MEDS ORDERED: ATOR40TA70 PO (12:36)
[2024-08-28] MEDS ORDERED: ALBU18HF2 INH (12:36)
[2024-08-28] MEDS ORDERED: APIX5TAB MT (12:36)
[2024-08-28] MEDS ORDERED: DILT180C51 PO (12:36)
[2024-08-28] MEDS ORDERED: METH4TAB95 MT (12:36)
[2024-08-28] MEDS ORDERED: ASPI-1497 MT (12:36)
[2024-08-28] MEDS ORDERED: FLUT1DIS6 INH (12:36)
== END 2024-08-28 17:15 | disposition home health service (06) | DRG 189 ==
LOC: ER 08:03 → 5EST 09:06 → EDBEDREQ 09:13
PROVIDERS: ADMIT Internal Medicine; ATTEND Internal Medicine
PROC: 5A09557 Assistance with Respiratory Ventilation, Greater than 96 Consecutive Hours, Continuous Positive Airway Pressure (ICD-10-PCS; principal; 2024-08-21)
DX: J96.00 Acute respiratory failure, unspecified whether with hypoxia or hypercapnia (principal); J44.1 Chronic obstructive pulmonary disease with (acute) exacerbation; E87.29 Other acidosis; I48.0 Paroxysmal atrial fibrillation; I10 Essential (primary) hypertension; E11.9 Type 2 diabetes mellitus without complications; E78.00 Pure hypercholesterolemia, unspecified; Z86.73 Personal history of transient ischemic attack (TIA), and cerebral infarction without residual deficits; Z79.01 Long term (current) use of anticoagulants; Z86.711 Personal history of pulmonary embolism; Z88.0 Allergy status to penicillin
CPT/HCPCS: 36415; 36600; 71045; 80048; 80305; 82375; 82805; 82962; 83880; 84484; 85025; 93005; 93306; 93970; 94070; 94640; 94660; 98960; 99291; J2470; J2919; J2920; J3475; J3490; J7626